=== PATIENT | female | born 1955 | race Caucasian/White ===

== ENCOUNTER 2018-07-08 13:00 | Emergency (ER) | payer MEDICAID, OTHER ==
[~2018-07-08] VITALS: Ht 144.8 cm; Wt 94.5 kg
[~2018-07-08 13:00] MED LIST: CITA20TA11 PO; CLON0.2T5 PO; LISI-471 PO; OMEP20CA16 PO; TRAZ-111 PO
[2018-07-08 13:02] VITALS: BP 139/66; PULSE 89; RESP 18; Ht 144.8 cm; Wt 94.5 kg
[2018-07-08] MEDS ORDERED: ALBUTEROL 0.5% (NEB) 2.5 MG/0.5 ML AMP INH STA (13:21)
[2018-07-08] MEDS ORDERED: IPRATROPIUM (NEB) 0.5 MG/2.5 ML AMP INH STA (13:21)
[2018-07-08] MEDS ORDERED: DEXAMETHASONE 10 MG/ML 1 ML INJ IM STA (13:21)
--- NOTE | 2018-07-08 13:56 | ERD ---
ER Documentation Chief Complaint Chief Complaint SORE THROAT , CHEST CONGESTION X 2 DAYS , INHALER NOT WORKING HPI This patient is a 63-year-old female with past medical history of asthma, hypertension, pneumonia presenting to the emergency department with complaints of cough for the past 2 days. The patient also has some mild chest discomfort while coughing. Symptoms are intermittent and worse during the day. She has been using her albuterol inhaler at home without significant relief. She denies any fevers, chills, or other symptoms at this time. ROS All systems reviewed and are negative except as per history of present illness. Medications Home Meds Active Scripts Benzonatate* (Benzonatate*) 200 Mg Capsule, 200 MG PO TID PRN for COUGH, #15 CAP Prov:NIKKI SHARMA PA-C 07/08/18 Albuterol Sulfate* (Ventolin HFA*) 18 Gm Hfa.aer.ad, 2 PUFF INHALATION Q4H, #1 I NHALER Prov:NIKKI SHARMA PA-C 07/08/18 Albuterol Sulfate* (Albuterol Sulfate* Neb) 0.083%-3 Ml Neb, 2.5 MG NEB Q4 PRN for SHORTNESS OF BREATH, #30 EA Prov:NIKKI SHARMA PA-C 07/08/18 Prednisone* (Prednisone*) 20 Mg Tab, 40 MG PO DAILY for 4 Days, TAB Prov:NIKKI SHARMA PA-C 07/08/18 Reported Medications Trazodone Hcl* (Trazodone Hcl*) 50 Mg Tablet, 50 MG PO HS PRN for SLEEP, TAB 03/11/14 Omeprazole* (Omeprazole*) 20 Mg Capsule.dr, 20 MG PO DAILY, CAP 03/11/14 Clonidine Hcl* (Clonidine Hcl*) 0.2 Mg Tablet, 0.2 MG PO DAILY, TAB 03/11/14 Lisinopril* (Lisinopril*) 20 Mg Tablet, 20 MG PO DAILY, TAB 03/11/14 Citalopram Hydrobromide* (Celexa*) 20 Mg Tablet, 20 MG PO DAILY, TAB 03/11/14 Allergies Allergies: Coded Allergies: codeine (Verified Allergy, Unknown, 07/08/18) PMhx/Soc History of Surgery: Yes (4 ) Hx Respiratory Disorders: Yes (ASMATIC) Hx Alcohol Use: No Hx Substance Use: No Hx Tobacco Use: No Smoking Status: Never smoker FmHx Family History: No diabetes Physical Exam Vitals Vital Signs Date Temp Pulse Resp B/P (MAP) Pulse Ox O2 O2 Flow FiO2 Time Delivery Rate 07/08/18 81 22 97 21 14:09 07/08/18 99.1 89 18 139/66 95 13:02 (90) Physical Exam Const: No acute distress Head: Atraumatic Eyes: Normal Conjunctiva ENT: Normal External Ears, Nose and Mouth. Neck: Full range of motion. No meningismus. Resp: Mild inspiratory and expiratory wheezing noted to bilateral upper lung mackey. No respiratory distress. Cardio: Regular rate and rhythm, no murmur Skin: No petechiae or rashes Ext: No cyanosis, or edema Neur: Awake and alert Psych: Normal Mood and Affect Results 24 hrs Current Medications Medications Dose Sig/Juliocesar Start Time Status Last (Trade) Ordered Route PRN Stop Time Admin Dose Reason Admin Albuterol 10 mg ONCE STAT 07/08/18 DC 07/08/18 (Proventil INH 13:21 14:08 0.5% (Neb)) 07/08/18 13:22 Ipratropium 1 mg ONCE STAT 07/08/18 DC 07/08/18 [place] INH 13:21 14:09 (Atrovent 07/08/18 13:22 0.02% (Neb)) 10 mg ONCE STAT 07/08/18 DC 07/08/18 Dexamethasone IM 13:21 14:02 (Decadron) 07/08/18 13:22 [place] [id number] Radiology Main Line: [phone] DIAGNOSTIC IMAGING REPORT Patient: BRIE VGEA : 1955 Age: 63 Sex: F MR #: [id number] DOS: 07/08/18 1321 Ordering MD: NIKKI SHARMA PA-C Location: [facility] Room/Bed: PROCEDURE: XR Chest. CLINICAL INDICATION: Asthma exacerbation TECHNIQUE: A single AP view of the chest was obtained. COMPARISON: CR CHEST 03/11/2014 FINDINGS: No focal airspace opacification, pleural effusion or pneumothorax is seen. The cardiomediastinal silhouette is mildly enlarged. Calcifications are seen within the aortic arch. The osseous structures are unremarkable. IMPRESSION: 1. No radiographic evidence of acute cardiopulmonary disease. 2. Mild cardiomegaly and aortic atherosclerosis. RPTAT: HH .Jing Patel MD, MD Date Time Electronically viewed and signed by .Jing Patel MD, MD on 07/08/2018 14:23 .G/ CC: NIKKI SHARMA PA-C [phone] Procedures/MDM 63-year-old female presenting to the emergency department for asthma exacerbation. Patient was treated in the department with albuterol/ipratropium breathing treatment as well as Decadron. Patient was significantly improved on reevaluation. Patient's respiratory status has stabilized while in the department and is appropriate for outpatient work up. Exam and work up not consistent w/ impending respiratory failure or cardiovascular collapse. EKG: Interpreted by ED physician. Rate/Rhythm: Normal Sinus Rhythm with a rate of 66 bpm. QRS, ST, T-waves: No changes consistent w/ acute ischemia Impression: No evidence of ischemia or arrhythmia No evidence of life-threatening pathology at time of discharge. Pt/family in agreement with discharge plan/diagnosis. Pt/family advised to return immediately with any new or worsening symptoms. Follow-up with primary care physician within the next 1-2 days. Departure Diagnosis: Primary Impression: Asthma with acute exacerbation Asthma severity: unspecified severity Asthma persistence: unspecified Qualified Codes: J45.901 - Unspecified asthma with (acute) exacerbation Condition: Fair Patient Instructions: Asthma, Acute (Adult) Additional Instructions: Follow up with your PCP within the next 1-3 days for a repeat evaluation. If you require a referral to a specialist, your Primary Care Provider may be able to provide this for you. In most patient cases, a referral is not required. If you have further questions regarding this matter, please ask your Primary Care Provider. Return the the emergency department immediately if symptoms worsen or change. If you have any questions regarding medications, ask your pharmacist or us before you leave. If any adverse reactions, occur while taking your medications, discontinue the treatment and return to the emergency department immediately. If any new or worsening symptoms, uncontrolled fevers, or other unexplained symptoms occur, return to the emergency department immediately. Take your medications as directed, and complete the entire course of treatment. NIKKI SHARMA PA-C Jul 08, 2018 13:56
[2018-07-08] MEDS ORDERED: ALBU2.5V3 NEB (15:46)
[2018-07-08] MEDS ORDERED: ALBU18HF INHALATION (15:46)
[2018-07-08] MEDS ORDERED: PRED20TA PO (15:46)
[2018-07-08] MEDS ORDERED: BENZ200C68 PO (15:46)
== END 2018-07-08 16:09 | disposition home or self-care (01) ==
LOC: FTE 13:00
DX: J45.901 Unspecified asthma with (acute) exacerbation (principal); I10 Essential (primary) hypertension
CPT/HCPCS: 71045; 93005; 94644; 96372; J1100; Z7502; Z7610